=== PATIENT | male | born 1980 | race Caucasian/White ===

== ENCOUNTER 2020-10-01 14:02 | Outpatient (RCR) | payer MEDICAID, SELFPAY | END 2020-11-17 23:59 | LOC: IMMUN 14:02 | PROVIDERS: Referring Provider Family Medicine; Visit Provider Family Medicine | DX: Z23 Encounter for immunization (principal) | CPT/HCPCS: 0001A; 0002A; 91300 ==

== ENCOUNTER 2021-06-12 17:57 | Emergency (ER) | payer MEDICAID, SELFPAY ==
[2021-06-12 17:57] VITALS: BP 152/84; PULSE 102; RESP 16; TEMP 36.7; O2SAT 99; BMI 36.8
--- NOTE | 2021-06-12 18:51 | ED.VIS.LOWEX ---
HPI History of Present Illness Chief Complaint: Lower Extremity Injury Narrative Narrative: Patient presenting with left foot pain. He states he had a blister on the distal aspect of his left foot between his second and third toes which started about a month ago after hike. This is slowly progressed into more painful area. It is not draining anything. It is turned white. He does not have any redness or erythema. Denies any systemic signs or symptoms. He states that he has not seen anybody for this prior. PFSH PFSH Medical History no medical history Allergy/AdvReac Type Severity Reaction Status Date / Time Penicillins Allergy Rash Verified 06/12/21 17:59 Family History no significant family his Surgical History no surgical history Social History Smoking Status: Current every day smoker tobacco type: cigarettes ROS ROS ED Constitutional Constitutional ED: Denies chills, fever(s) or sweats Eyes Eyes: Denies blurry vision or change in vision ENT ENT ED: Denies ear pain or sore throat Cardiovascular Cardiovascular: Denies chest pain, palpitations or racing heartbeat Respiratory/Chest Respiratory/Chest: Denies cough, dyspnea or sputum Gastrointestinal Gastrointestinal: Denies abdominal pain, constipation, diarrhea, nausea or vomiting Genitourinary Genitourinary ED: Denies dysuria, hematuria or urinary frequency Musculoskeletal Musculoskeletal: Reports other Details: Left foot pain ; Denies arthralgias, myalgias or neck pain Integumentary Denies abscess, Abrasions or rash Neurologic Neurologic: Denies headache(s), paresthesias or weakness Psychiatric Psychiatric: Denies anxiety, depression, suicidal ideation or suicidal thoughts Endocrine Endocrinology: Denies polydipsia or polyuria EXAM Physical Exam Const Vital Signs: 06/12/21 17:57 Temperature 98.0 F Temperature Source Temporal Pulse Rate 102 H Respiratory Rate 16 Blood Pressure 152/84 H Blood Pressure Mean 106 Pulse Ox 99 Oxygen Delivery Method Nasal Cannula Positive well nourished General Appearance ED: Negative for pallor HEENT Reports normocephalic, head/scalp atraumatic and moist mucous membranes Eyes PERRL and EOMs intact bilaterally Neck no lymphadenopathy and supple Chest Wall inspection of chest normal and palpation of chest normal Resp normal respiratory effort and clear to auscultation bilaterally Auscultation: Negative for rales, rhonchi or wheezes Cardio regular rate and regular rhythm GI normal to inspection, nondistended, normoactive bowel sounds and non-distended Auscultation: normoactive bowel sounds Palpation: soft Narrative: Deferred Back/Spine no CVA tenderness General Back: Negative for CVA tenderness Cervical Spine: Negative for cervical spine tenderness Extremity normal to inspection General Extremety ED: Yes edema and tenderness General Extremity: edema Neuro oriented x3 and CN's II-XII intact bilaterally Sensorium / Orientation: alert Motor Exam: strength 5/5 throughout Psych mental status grossly normal Attitude: No agitated Skin no rashes or lesions noted Skin Narrative: On the left foot between the second and third toes on the plantar surface fat pad there is a 1.5 cm circular area that is whitened. This is not fluctuant. It is mildly tender to palpation. There is no crepitance. Patient has no bony tenderness. General Skin Exam: Negative for jaundice or pallor MDM MDM MDM Narrative Medical decision making narrative: 40-year-old male presented with left foot pain on my evaluation it appears that he might have a plantars wart on the foot. This does not appear to be an abscess or need any acute treatment. It does not appear to be infected. I will refer him to podiatry for evaluation. He is amenable to this. Patient stable for discharge at this time. Impression: 1. Plantars wart Discharge Plan Triage Chief Complaint: Lower Extremity Injury ED Provider: Bandar De Dios Dx/Rx/DC Orders Instructions: ED Plantar Warts Referrals: Angely Rice [Licensed Practical Nurse] - Henry Dang DPM [STAFF PHYSICIAN] - As soon as possible Disposition Disposition: Home, Self Care Discharge Date/Time: 06/12/21 18:22
== END 2021-06-12 18:22 | disposition home or self-care (01) ==
LOC: ED 18:19
PROVIDERS: Emergency Provider Student in an Organized Health Care Education/Training Program
DX: B07.0 Plantar wart (principal); F17.210 Nicotine dependence, cigarettes, uncomplicated
CPT/HCPCS: 99282